=== PATIENT | male | born 1955 | race African-American/Black ===

== ENCOUNTER 2019-11-29 18:01 | Emergency (ER) | payer OTHER ==
[~2019-11-29] VITALS: Ht 175.3 cm; Wt 74.8 kg
[2019-11-29 18:58] LABS: CREATININE 1.8 mg/dL (0.7-1.3); POTASSIUM 4.9 mmol/L (3.5-5.1)
[2019-11-29 19:03] LABS: ABSOLUTE NEUTROPHILS 9.7 thou/uL (1.4-8.2); BASOPHILS 0.2 % (0.0-2.0); HEMATOCRIT 39.6 % (42.0-52.0); HEMOGLOBIN 12.4 gm/dL (14.0-18.0); LYMPHOCYTES 15.4 % (24.0-44.0); MCH 27.1 pg (26.0-34.0); MCHC 31.3 g/dL (28.0-37.0); MCV 86.5 fL (80.0-100.0); MONOCYTES 9.8 % (1.0-8.0); PLATELET COUNT 266 thou/uL (150-400); POLYS 74.6 % (36.0-66.0); RBC 4.58 mil/uL (4.50-6.00); RDW 18.5 % (10.5-14.5)
[2019-11-29 19:07] LABS: ALBUMIN 1.5 g/dL (3.4-5.0); TOTAL BILIRUBIN 0.5 mg/dL (0.2-1.0); TOTAL PROTEIN 6.1 g/dL (6.4-8.2)
[2019-11-29 19:56] VITALS: BP 102/61
== END 2019-11-29 19:58 ==
LOC: ER 18:01
PROVIDERS: Emergency Medicine
DX: A41.9 Sepsis, unspecified organism (principal)